=== PATIENT | male | born 1985 | race Caucasian/White ===

== ENCOUNTER 2017-09-11 22:13 | Emergency (ER) | payer OTHER ==
[~2017-09-11] VITALS: Ht 160 cm; Wt 86.2 kg
[2017-09-11 22:22] VITALS: BP 132/81
[2017-09-11] MEDS ORDERED: NORCO 5-325 TA1 EAC1 PO (22:30)
== END 2017-09-11 22:50 | disposition home or self-care (01) ==
LOC: M.ERS 22:13
DX: K08.89 Other specified disorders of teeth and supporting structures (principal)